=== PATIENT | male | born 1955 | race Caucasian/White ===

== ENCOUNTER 2021-02-15 06:42 | Emergency (ER) | payer BC ==
--- NOTE | 2021-02-15 08:30 | EDM.PDOC ---
ED HPI GENERAL MEDICAL PROBLEM - General Chief Complaint: Respiratory Problem Stated Complaint: [id number] COUGHING Time Seen by Provider: 02/15/21 08:27 Source of Information: Reports: Patient, RN, RN Notes Reviewed History Limitations: Reports: No Limitations - History of Present Illness INITIAL COMMENTS - FREE TEXT/NARRATIVE: Patient presents with cough that followed sinus problems that started on 02/12/21. He states cough has become persistent, wanted him seen. He states sputum is clear but that 'he can hear the gurgle when he breathes'. Patient states he is fully COVID vaccinated and recently received a booster. Denies fever, chills, chest pain, or shortness of breath. Onset: Gradual Duration: Day(s): (4-5) Location: Reports: Chest Severity: Mild Improves with: Reports: None Worsens with: Reports: None Context: Reports: Sick Contact () Associated Symptoms: Reports: No Other Symptoms - Related Data Allergies Allergy/AdvReac Type Severity Reaction Status Date / Time No Known Allergies Allergy Verified 02/15/21 08:04 Past Medical History HEENT History: Reports: Sinusitis Cardiovascular History: Reports: High Cholesterol, Hypertension Respiratory History: Reports: None Genitourinary History: Reports: BPH Musculoskeletal History: Reports: None Neurological History: Reports: Migraines Psychiatric History: Reports: None Endocrine/Metabolic History: Reports: Diabetes, Type II Hematologic History: Reports: None Immunologic History: Reports: None Oncologic (Cancer) History: Reports: None Dermatologic History: Reports: None - Infectious Disease History Infectious Disease History: Reports: None - Past Surgical History GI Surgical History: Reports: Bariatric Procedure Social & Family History - Family History Family Medical History: No Pertinent Family History - Tobacco Use Tobacco Use Status *Q: Never Tobacco User Second Hand Smoke Exposure: No - Caffeine Use Caffeine Use: Reports: Coffee - Recreational Drug Use Recreational Drug Use: No - Living Situation & Occupation Living situation: Reports: ED ROS GENERAL - Review of Systems Review Of Systems: Comprehensive ROS is negative, except as noted in HPI. ED EXAM, GENERAL - Physical Exam Exam: See Below Exam Limited By: No Limitations General Appearance: Alert, WD/WN, No Apparent Distress, Obese Eye Exam: Bilateral Eye: Normal Inspection Ears: Hearing Grossly Normal Nose: No Blood, Other (Mild congestion) Throat/Mouth: Normal Inspection, Normal Lips, Normal Voice, No Airway Compromise Head: Atraumatic, Normocephalic Respiratory/Chest: Lungs Clear, Other (Dry cough) Cardiovascular: Regular Rate, Rhythm Neurological: Alert, Oriented, No Motor/Sensory Deficits Psychiatric: Normal Mood Skin Exam: Warm, Dry, Intact, Normal Color, No Rash Course - Vital Signs Last Recorded V/S: Last Vital Signs Temp 98.9 F 02/15/21 07:15 Pulse 73 02/15/21 07:15 Resp 18 02/15/21 07:15 BP 141/67 H 02/15/21 07:15 Pulse Ox 96 02/15/21 07:15 - Orders/Labs/Meds Orders: Active Orders 24 hr Category Date Time Status Chest 2V [CR] Stat Exams 02/15/21 08:26 Taken Labs: Laboratory Tests 02/15/21 Range/Units 07:01 SARS CoV-2 RNA Rapid CHERELLE Negative (NEGATIVE) - Radiology Interpretation Free Text/Narrative:: XR Chest: no consolidations, no acute process, see Rad. report. Departure - Departure Time of Disposition: 09:01 Disposition: Home, Self-Care 01 Condition: Good Clinical Impression: Viral URI with cough - Discharge Information *PRESCRIPTION DRUG MONITORING PROGRAM REVIEWED*: Not Applicable *COPY OF PRESCRIPTION DRUG MONITORING REPORT IN PATIENT ALPHONSE: Not Applicable Instructions: Viral Respiratory Infection Forms: ED Department Discharge Additional Instructions: Rx: Tessalon Perles 200mg Use over the counter Robitussin as needed. Follow up in clinic if not improving in 7 to 10 days. Sepsis Event Note (ED) - Evaluation Sepsis Screening Result: No Definite Risk - Focused Exam Vital Signs: Vital Signs Temp Pulse Resp BP Pulse Ox 02/15/21 07:15 98.9 F 73 18 141/67 H 96 - My Orders Last 24 Hours: My Active Orders 02/15/21 08:26 Chest 2V [CR] Stat - Assessment/Plan Last 24 Hours: My Active Orders 02/15/21 08:26 Chest 2V [CR] Stat
--- NOTE | 2021-02-15 09:43 | CR ---
PROCEDURE INFORMATION: Exam: XR Chest Exam date and time: 02/15/2021 8:32 AM Age: 66 years old Clinical indication: Cough; Additional info: Cough, covid negative TECHNIQUE: Imaging protocol: XR of the chest. Views: 2 views. COMPARISON: CT Chest wo Cont 09/01/2018 1:00 PM FINDINGS: Lungs: Unremarkable. No consolidation. Pleural spaces: Unremarkable. No pleural effusion. No pneumothorax. Heart/Mediastinum: Unremarkable. No cardiomegaly. Bones/joints: Unremarkable. IMPRESSION: No acute findings.
== END 2021-02-15 09:16 | disposition home or self-care (01) ==
LOC: DL.ED 06:42
DX: J06.9 Acute upper respiratory infection, unspecified (principal); I10 Essential (primary) hypertension; E11.9 Type 2 diabetes mellitus without complications; Z20.822 Contact with and (suspected) exposure to COVID-19
CPT/HCPCS: 71046; 99283-25; U0002

== ENCOUNTER 2021-08-10 07:26 | Day surgery (SDC) | payer BC, MEDICARE ==
[~2021-08-10 07:26] MED LIST: Dextrose 5%-0.45% NaCl 1,000 ML IV SCH; Midazolam 1 MG/ML 2 ML SDV ONE; Sodium Chloride 0.9% 10 ML Syringe FLUSH PRN; Sodium Chloride 0.9% 10 ML Syringe FLUSH SCH; fentaNYL 100 MCG/2 ML SDV ONE
[2021-08-10] MEDS ORDERED: fentaNYL 100 MCG/2 ML SDV IV ONE ×3 (07:27→08:40)
[2021-08-10] MEDS ORDERED: Midazolam 1 MG/ML 2 ML SDV IV ONE ×7 (07:27→08:50)
[2021-08-10] MEDS ORDERED: Dextrose 5%-0.45% NaCl 1,000 ML IV SCH (07:30)
[2021-08-10] MEDS ORDERED: Sodium Chloride 0.9% 10 ML Syringe FLUSH SCH (09:00)
== END 2021-08-10 11:15 | disposition home or self-care (01) ==
LOC: DL.ENDO 07:26
PROVIDERS: ATTEND Internal Medicine Gastroenterology
DX: D12.0 Benign neoplasm of cecum (principal); D50.9 Iron deficiency anemia, unspecified; E66.09 Other obesity due to excess calories; E11.9 Type 2 diabetes mellitus without complications; I10 Essential (primary) hypertension; E78.5 Hyperlipidemia, unspecified; G47.00 Insomnia, unspecified; N40.0 Benign prostatic hyperplasia without lower urinary tract symptoms; Z68.32 Body mass index [BMI] 32.0-32.9, adult
CPT/HCPCS: 45385; J2250; J3010; J7042; 88305

== ENCOUNTER 2021-08-18 05:55 | Day surgery (SDC) | payer MEDICARE ==
[2021-08-18] MEDS ORDERED: fentaNYL 100 MCG/2 ML SDV IV ONE ×3 (05:56→07:14)
[2021-08-18] MEDS ORDERED: Midazolam 1 MG/ML 2 ML SDV IV ONE ×3 (05:56→07:15)
[2021-08-18] MEDS ORDERED: Dextrose 5%-0.45% NaCl 1,000 ML IV SCH (06:00)
[2021-08-18] MEDS ORDERED: Midazolam 1 MG/ML 2 ML SDV ONE (06:04)
[2021-08-18] MEDS ORDERED: fentaNYL 100 MCG/2 ML SDV ONE (06:04)
== END 2021-08-18 09:28 | disposition home or self-care (01) ==
LOC: DL.ENDO 05:55
PROVIDERS: ATTEND Internal Medicine Gastroenterology
DX: K29.50 Unspecified chronic gastritis without bleeding (principal); B96.81 Helicobacter pylori [H. pylori] as the cause of diseases classified elsewhere; D50.9 Iron deficiency anemia, unspecified; E66.09 Other obesity due to excess calories; E11.9 Type 2 diabetes mellitus without complications; I10 Essential (primary) hypertension; E78.5 Hyperlipidemia, unspecified; G47.00 Insomnia, unspecified; N40.0 Benign prostatic hyperplasia without lower urinary tract symptoms; Z98.84 Bariatric surgery status; Z01.812 Encounter for preprocedural laboratory examination; Z20.822 Contact with and (suspected) exposure to COVID-19; Z68.32 Body mass index [BMI] 32.0-32.9, adult
CPT/HCPCS: 87077; 88305; 88342; J2250; J3010; J7042; U0002